=== PATIENT | female | born 1975 | race Caucasian/White ===

== ENCOUNTER 2018-10-03 12:38 | Emergency (ER) | payer SELFPAY ==
[~2018-10-03] VITALS: Ht 170.2 cm; Wt 93.4 kg
[2018-10-03 13:20] VITALS: BP 158/74; PULSE 61; RESP 18; Ht 170.2 cm; Wt 93.4 kg
--- NOTE | 2018-10-03 14:34 | ERD ---
ER Documentation Chief Complaint Chief Complaint rash to chest and face x yesterday HPI 43-year-old female presents for rash x2 days. The rash is in the upper chest area and there is one harshil on her face. She states that the rash is itchy. No prior similar symptoms. She states that she has a new pet at home and does not know if that is the reason for the new rash. Patient states that she is concerned about measles because of what she is been hearing on the knees. She denies any cough fever or runny nose. She has been vaccinated for measles in the past. Denies any pain past medical history. No treatments tried at home. No other modifying factors noted. ROS All systems reviewed and are negative except as per history of present illness. Physical Exam Vitals Vital Signs Date Temp Pulse Resp B/P (MAP) Pulse Ox O2 O2 Flow FiO2 Time Delivery Rate 10/03/18 98.0 61 18 158/74 100 13:20 (102) Physical Exam Const: No acute distress Resp: Clear to auscultation bilaterally Cardio: Regular rate and rhythm, no murmurs Abd: Soft, non tender, non distended. Normal bowel sounds Skin: Macular papular rash noted over the upper chest area and one area over the right side of the face. Back: No midline or flank tenderness Ext: No cyanosis, or edema Neur: Awake and alert Psych: Normal Mood and Affect Procedures/MDM Medical Decision Making: Differential diagnosis includes but not limited to allergic reaction, dermatitis, cellulitis Patient appeared well on physical exam. Suspicion for measles, no upper respiratory symptoms, no fever Offered to give patient prescription for steroid cream but patient states that she would rather not have a prescription. Patient advised to follow up with PCP in 1-2 days. Patient advised to return to ED for new or worsening symptoms. Patient stable on discharge from the ED. Disclaimer: Inadvertent spelling and grammatical errors are likely due to EHR/dictation software use and do not reflect on the overall quality of patient care. Also, please note that the electronic time recorded on this note does not necessarily reflect the actual time of the patient encounter. Departure Diagnosis: Primary Impression: Rash Condition: Fair Patient Instructions: Self-Care for Skin Rashes Referrals: [facility] YOU HAVE RECEIVED A MEDICAL SCREENING EXAM AND THE RESULTS INDICATE THAT YOU DO NOT HAVE A CONDITION THAT REQUIRES URGENT TREATMENT IN THE EMERGENCY DEPARTMENT. FURTHER EVALUATION AND TREATMENT OF YOUR CONDITION CAN WAIT UNTIL YOU ARE SEEN IN YOUR DOCTORS OFFICE WITHIN THE NEXT 1-2 DAYS. IT IS YOUR RESPONSIBILITY TO MAKE AN APPOINTMENT FOR FOLOW-UP CARE. IF YOU HAVE A PRIMARY DOCTOR --you should call your primary doctor and schedule an appointment IF YOU DO NOT HAVE A PRIMARY DOCTOR YOU CAN CALL OUR PHYSICIAN REFERRAL HOTLINE AT IF YOU CAN NOT AFFORD TO SEE A PHYSICIAN YOU CAN CHOSE FROM THE FOLLOWING COM [facility] [id number] [facility] [id number] [facility] [address] [facility] [address] [facility] [id number] [facility]. [facility]. [address] Additional Instructions: Call your primary care doctor TOMORROW for an appointment during the next 1-2 days.See the doctor sooner or return here if your condition worsens before your appointment time. SUDHAKAR GARCIA DO Oct 03, 2018 14:34
== END 2018-10-03 15:46 | disposition home or self-care (01) ==
LOC: FTE 12:38
DX: R21 Rash and other nonspecific skin eruption (principal)
CPT/HCPCS: 99282